=== PATIENT | male | born 1995 | race Caucasian/White ===

== ENCOUNTER 2019-07-17 21:13 | Emergency (ER) | payer MEDICAID ==
[~2019-07-17] VITALS: Ht 167.6 cm; Wt 59.0 kg
--- NOTE | 2019-07-17 21:13 | NUR ---
NICK HUNTLEY, PREBOOK. TAKEN TO CHAIR
[2019-07-17 21:14] VITALS: BP 119/78
[2019-07-17 21:18] VITALS: BP 119/78
--- NOTE | 2019-07-17 21:20 | NUR ---
PARISH HUNTLEY IN CUSTODY. VSS. DENIES MEDICAL COMPLAINTS. STATES HX OF HEP C WITHOUT TREATMENT. NEEDS MEDICAL CLEARANCE BEFORE BEING TAKEN TO [facility] LONG TERM
--- NOTE | 2019-07-17 21:39 | NUR ---
Patient discharged with v/s stable. Written and verbal after care instructions given and explained. Patient verbalized understanding. Amb in custody . All questions addressed prior to discharge. Advised to follow up with PMD.
== END 2019-07-17 21:39 ==
LOC: MED 21:13
DX: Z02.89 Encounter for other administrative examinations (principal); Z86.19 Personal history of other infectious and parasitic diseases
CPT/HCPCS: 99283

== ENCOUNTER 2021-08-03 01:35 | Emergency (ER) | payer MEDICAID ==
[~2021-08-03] VITALS: Ht 165.1 cm; Wt 68.0 kg
[2021-08-03 01:52] VITALS: BP 117/71
[2021-08-03] MEDS ORDERED: BACITRACIN OINT 500 UNITS/GM PKT TP ONE ×2 (02:20→02:21)
[2021-08-03] MEDS ORDERED: CEPH-588 PO (02:22)
[2021-08-03] MEDS ORDERED: HYDR-5191 PO ×2 (02:24→02:25)
[2021-08-03 02:42] VITALS: BP 117/71
--- NOTE | 2021-08-03 02:42 | NUR ---
Patient discharged with v/s stable. Written and verbal after care instructions given and explained. Patient alert, oriented and verbalized understanding of instructions. Ambulatory with steady gait. All questions addressed prior to discharge. ID band removed. Patient advised to follow up with PMD. Rx of KEFLEX AND NORCO given. Patient educated on indication of medication including possible reaction and side effects. Opportunity to ask questions provided and answered.
[2021-08-07] MEDS ORDERED: SULF-58 PO (09:21)
[2021-08-07] MEDS ORDERED: PANT40EC56 PO (09:21)
[2021-08-07] MEDS ORDERED: ACET-9525 PO (09:21)
== END 2021-08-03 02:42 | disposition home or self-care (01) ==
LOC: MED 01:35
DX: L03.316 Cellulitis of umbilicus (principal); Z79.899 Other long term (current) drug therapy
CPT/HCPCS: 99283; 99284

== ENCOUNTER 2022-10-04 13:05 | Emergency (ER) | payer MEDICAID ==
[~2022-10-04] VITALS: Ht 162.6 cm; Wt 63.2 kg
[~2022-10-04 13:05] MED LIST: AMOX-999 PO
[2022-10-04 13:16] VITALS: BP 129/76
--- NOTE | 2022-10-04 13:25 | NUR ---
BIB SELF C/O RIGHT FOOT PAIN , REDNESS, SWELLING X 2 WEEKS, PAINFUL URINATION X 5 WEEKS. PMH: HEP C
[2022-10-04] MEDS ORDERED: IBUPROFEN 400 MG TAB PO ONE (13:40)
[2022-10-04 14:37] LABS: APPEARANCE,URINE CLEAR (CLEAR); BILIRUBIN,URINE NEGATIVE (NEGATIVE); BLOOD, URINE TRACE-I (NEGATIVE); COLOR,URINE YELLOW (YELLOW); LEUKOCYTE ESTERASE ,URINE NEGATIVE (NEGATIVE); NITRITE, URINE NEGATIVE (NEGATIVE); UGLUCOSE NEGATIVE (NEGATIVE)
[2022-10-04] MEDS ORDERED: PENICILLIN G BENZATHINE L-A 1.2 MU/2 ML SYR IM ONE (15:10)
[2022-10-04] MEDS ORDERED: cefTRIAXone 1,000 MG in LIDOCAINE MPF 1% 2.1 ML IM ONE (15:10)
[2022-10-04] MEDS ORDERED: CEPH-588 PO (15:12)
[2022-10-04] MEDS ORDERED: IBUP-1842 PO (15:12)
[2022-10-04] MEDS ORDERED: DOXY-690 PO (15:12)
[2022-10-04] MEDS ORDERED: cefTRIAXone 1,000 MG VIAL ONE (15:21)
[2022-10-04] MEDS ORDERED: LIDOCAINE MPF 1% 5 ML ONE (15:22)
--- NOTE | 2022-10-04 15:28 | NUR ---
Patient discharged with v/s stable. Written and verbal after care instructions given and explained. Patient alert, oriented and verbalized understanding of instructions. Ambulatory with steady gait. All questions addressed prior to discharge. ID band removed. Patient advised to follow up with PMD. Rx of DOXYCLYCLINE, KEFLEX given. Patient educated on indication of medication including possible reaction and side effects. Opportunity to ask questions provided and answered.
[2022-10-04 15:50] LABS: RBC,URINE 0-5 /HPF (0-5); WBC,URINE 0-5 /HPF (0-5); YEAST,URINE None Seen /HPF (None Seen)
[2022-10-04 15:51] LABS: TRICHOMONAS,URINE None Seen /HPF (None Seen)
== END 2022-10-04 15:28 | disposition home or self-care (01) ==
LOC: MED 13:05
DX: S91.104A Unspecified open wound of right lesser toe(s) without damage to nail, initial encounter (principal); L03.115 Cellulitis of right lower limb; Z11.3 Encounter for screening for infections with a predominantly sexual mode of transmission; F15.90 Other stimulant use, unspecified, uncomplicated; Z79.1 Long term (current) use of non-steroidal anti-inflammatories (NSAID); Z79.2 Long term (current) use of antibiotics; X58.XXXA Exposure to other specified factors, initial encounter; Y92.89 Other specified places as the place of occurrence of the external cause; Y93.89 Activity, other specified; Y99.8 Other external cause status
CPT/HCPCS: 73630; 81001; 86592; 86703; 87491; 96372; 99284; J0561; J0696; J2001

== ENCOUNTER 2023-09-16 19:42 | Emergency (ER) | payer MEDICAID ==
[~2023-09-16] VITALS: Ht 170.2 cm; Wt 63.5 kg
[~2023-09-16 19:42] MED LIST changes: +CEPH-588 PO; +DOXY-690 PO; +IBUP-1842 PO
[2023-09-16 20:30] VITALS: BP 143/86; PULSE 98; RESP 18; TEMP 98.8; O2SAT 100
[2023-09-16] MEDS ORDERED: IBUPROFEN 600 MG TAB PO ONE (20:55)
[2023-09-16] MEDS ORDERED: AMOXIL/CLAVULANATE 875/125 MG 1 TAB PO ONE (20:55)
[2023-09-16] MEDS ORDERED: AMOX-1230 PO (20:56)
[2023-09-16] MEDS ORDERED: IBUP-2213 PO (20:56)
[2023-09-16 21:15] VITALS: BP 130/80; PULSE 88; RESP 16; TEMP 98; O2SAT 100
== END 2023-09-16 21:15 | disposition home or self-care (01) ==
LOC: MED 19:42
DX: L03.211 Cellulitis of face (principal); Z79.899 Other long term (current) drug therapy; Z79.2 Long term (current) use of antibiotics
CPT/HCPCS: 99283